=== PATIENT | female | born 1995 | race Caucasian/White ===

== ENCOUNTER 2017-09-23 10:13 | Emergency (ER) | payer OTHER ==
[~2017-09-23] VITALS: Ht 160 cm; Wt 68.5 kg
[2017-09-23 10:28] VITALS: Ht 160 cm; Wt 68.5 kg
[2017-09-23] MEDS ORDERED: KETOROLAC TROMETHAMINE 30 MG/ML VIAL IV STA (11:27)
[2017-09-23] MEDS ORDERED: DEXAMETHASONE **PF** INJ 10 MG/ML VIAL IV ONE (11:30)
[2017-09-23] MEDS ORDERED: SODIUM CHLORIDE 0.9% 1000ML 1,000 ML IV ONE (11:30)
[2017-09-23 11:51] VITALS: TEMP 36.9
[2017-09-23 12:20] LABS: BASO % 0.3 %; BASO ABS # 0.02 K/uL (0-0.2); EOS % 2.4 %; EOS ABS # 0.15 K/uL (0-0.5); HEMATOCRIT 40.8 % (37-47); HEMOGLOBIN 13.7 g/dL (12.0-16.0); IG# 0.02 K/uL (0.00-0.02); MEAN CELL VOLUME 89.1 fL (80-100); MEAN CORPUSCULAR HEMOGLOBIN 29.9 pg (25-34); MEAN CORPUSCULAR HGB CONC 33.6 g/dl (32-36); MEAN PLATELET VOLUME 10.8 fL (7.4-10.4); MONO % 7.4 %; MONO ABS # 0.47 K/uL (0.11-0.59); NEUT % 59.6 %; NEUT ABS # 3.77 K/uL (1.4-6.5); PLATELET COUNT 225 K/uL (130-400); RED CELL DISTRIBUTION WIDTH SD 42.1 fL (36.4-46.3); WHITE BLOOD COUNT 6.33 K/uL (4.8-10.8)
[2017-09-23 12:44] LABS: BLOOD UREA NITROGEN 12 mg/dl (7-18); CALCIUM 9.7 mg/dl (8.5-10.1); CARBON DIOXIDE 25 mmol/L (21-32); CREATININE 0.58 mg/dl (0.60-1.20); GLUCOSE 78 mg/dl (70-99); SODIUM 138 mmol/L (136-145)
[2017-09-23] MEDS ORDERED: PRED50TA PO (13:13)
[2017-09-23 13:44] VITALS: BP 108/61; PULSE 76; O2SAT 100
--- NOTE | 2017-09-23 16:03 | EMERGENCY ROOM VISIT NOTE ---
ED Visit Note First contact with patient: 10:31 Chief Complaint: I tonsils are swollen. History of Present Illness: Ms. Steen is a 22-year-old white female who ambulates into the ED complaining of throat pain. Patient reports she has been having some mild upper respiratory tract symptoms for last 2-3 days including sinus congestion, drainage and a nonproductive cough. She reports just today after waking she developed a sore throat. Since that time her sore throat has been constant. She describes a constant achy sensation in the pharynx. She rates her discomfort 5/10. Her pain is nonradiating. Her pain worsens with swallowing. She has not identified any alleviating factors related to the pain. She has not taken any medication for pain prior to arrival at the hospital. Associated with her pain she reports she has a headache on the top of her head and both parietal areas. She describes this as an achy sensation and reported her headache is mild, bilateral ear pain which she describes as a fullness sensation and bilateral ear ringing. Initially she reports she has dizziness and she explains or dizziness sensation as she moves her eyes she feels like her focus stays on one area and then slowly drifts over to where she is looking. She denies fevers, chills, sweats, skin eruptions, skin color changes, ear drainage, painful talking, drooling, inability to swallow, neck pain/stiffness, wheezing, hemoptysis, chest pain, palpitations, abdominal pain, nausea, vomiting , close sick contacts. Review of Systems: As noted above in history of present illness. All body systems were reviewed and found to be negative as noted above. Past Medical History: Patient denies. Current Medications: Patient denies. Allergies to Medications: Patient denies. Social History: Patient is currently employed; she feels safe in her home environment; he admits to tobacco use. Physical Examination: Vital Signs: Date Time Temp Pulse Resp B/P (MAP) Pulse Ox O2 Delivery O2 Flow Rate FiO2 09/23/17 13:44 76 16 108/61 100 09/23/17 11:51 36.9 69 16 114/65 99 Room Air 09/23/17 10:28 37.0 96 18 122/74 98 Room Air GENERAL: 22-year-old female in mild to moderate distress due to symptoms, nontoxic-appearing, afebrile and hemodynamically stable. NEUROLOGICAL: Awake, alert and oriented to person, place and time. Answering questions appropriately and following commands. Normal gait. Good hand eye coordination. No focal motor sensory deficits. SKIN: Warm, dry and pink. No soft tissue eruptions or trauma noted. HEENT: Atraumatic and normocephalic. No tenderness or erythema over the frontal or maxillary sinuses. External ears are nontender. Auditory canals are pink and patent. Tympanic membranes are not erythematous but are slightly bulging. Do not see any fluid behind the membrane. PERRLA. Sclera white and conjunctiva pink. No drainage from naris, but audible congestion. Oral cavity moist and pink. Airway is patent. Uvula is midline and no abscesses are seen. Pharynx is moderately erythematous and moderately edematous. Significant tonsillar hypertrophy but no kissing. I do not see any exudative material on the tonsils. Speech normal and clear. Positive anterior cervical chain lymphadenopathy; no posterior cervical chain lymphadenopathy. Trachea midline. No jugular venous distention. No laryngeal tenderness. BACK: No tenderness over the bony cervical and thoracic spine. No nuchal rigidity or meningismus. Full range of motion of the cervical spine. THORAX: Lungs sounds are clear to auscultation and equal bilaterally with symmetrical chest wall. No wheezing, rales or rhonchi. HEART: Regular rate and rhythm. No gallops, rubs or murmurs are appreciated. ABDOMEN: Flat, soft and nontender. Positive bowel sounds in all quadrants. No guarding, rigidity or organomegaly. EXTREMITIES: Moves all extremities well on command and with purpose. All distal neurovascular statuses are intact and equal bilaterally. ED Course: Patient is assessed as noted above. Patient's medication list was reviewed. Laboratory Testing: Test 09/23/17 11:50 Range/Units White Blood Count 6.33 4.8-10.8 K/uL Red Blood Count 4.58 4.2-5.4 M/uL Hemoglobin 13.7 12.0-16.0 g/dL Hematocrit 40.8 37-47 % Mean Corpuscular Volume 89.1 80-100 fL Mean Corpuscular Hemoglobin 29.9 25-34 pg Mean Corpuscular Hemoglobin Concent 33.6 32-36 g/dl Platelet Count 225 130-400 K/uL Mean Platelet Volume 10.8 7.4-10.4 fL Neutrophils (%) (Auto) 59.6 % Lymphocytes (%) (Auto) 30.0 % Monocytes (%) (Auto) 7.4 % Eosinophils (%) (Auto) 2.4 % Basophils (%) (Auto) 0.3 % Neutrophils # (Auto) 3.77 1.4-6.5 K/uL Lymphocytes # (Auto) 1.90 1.2-3.4 K/uL Monocytes # (Auto) 0.47 0.11-0.59 K/uL Eosinophils # (Auto) 0.15 0-0.5 K/uL Basophils # (Auto) 0.02 0-0.2 K/uL RDW Standard Deviation 42.1 36.4-46.3 fL RDW Coefficient of Variation 13.0 11.5-14.5 % Immature Granulocyte % (Auto) 0.3 % Immature Granulocyte # (Auto) 0.02 0.00-0.02 K/uL Sodium Level 138 136-145 mmol/L Potassium Level 4.0 3.5-5.1 mmol/L Chloride Level 104 98-107 mmol/L Carbon Dioxide Level 25 21-32 mmol/L Anion Gap 10.0 3-11 mmol/L Blood Urea Nitrogen 12 7-18 mg/dl Creatinine 0.58 0.60-1.20 mg/dl Est Creatinine Clear Calc Drug Dose 142.5 ml/min Estimated GFR () > 150.0 Estimated GFR (Non- 131.8 BUN/Creatinine Ratio 20.2 10-20 Random Glucose 78 70-99 mg/dl Calcium Level 9.7 8.5-10.1 mg/dl Monoscreen NEG NEG Group A Streptococcus Screen: Negative. Culture pending. Patient was hydrated with normal saline and received 30 mg of Toradol IV for pain and 8 mg of dexamethasone IV for inflammation. Patient was reassessed multiple times during her stay in the emergency department. Patient was educated about today's findings and instructed on her treatment plan ; she verbalizes understanding and agreement with this plan. Clinical Impression: Acute pharyngitis. Decision-Making: Initially my differential diagnosis I considered pharyngitis caused by a streptococcal infection, mononucleosis, viral infections, sinusitis , otitis media and other causes. Disposition: Patient discharged home in stable condition; prior to departure she was reassessed and subjectively reported she was feeling much better. She denied throat pain and reported resolution of headache. Plan: Patient was encouraged to alternate ibuprofen and acetaminophen every 3 hours as needed for pain and/or fevers. Patient was prescribed prednisone 50 mg once a day for 5 days. Patient was encouraged to stay well-hydrated with increased clear fluids and to use a mechanical soft/liquid diet until resolution of throat discomfort. Patient is encouraged to follow-up with her primary care provider for recheck in 2-4 days if no better. Patient was encouraged return ED for worsening symptoms, inability to swallow, painful talking, drooling, uncontrolled fevers or any new/concerning symptoms.
== END 2017-09-23 13:28 | disposition home or self-care (01) ==
LOC: C.EDB 10:15 → C.EDC 13:28
DX: J02.9 Acute pharyngitis, unspecified (principal)

== ENCOUNTER 2017-10-03 10:33 | Emergency (ER) | payer OTHER ==
[~2017-10-03] VITALS: Ht 160 cm; Wt 69.0 kg
[2017-10-03 10:47] VITALS: TEMP 37.1; Ht 160 cm; Wt 69.0 kg
[2017-10-03] MEDS ORDERED: ALUMINUM/MAGNESIUM SUSP 30 ML UDC PO STA (11:49)
[2017-10-03] MEDS ORDERED: LIDOCAINE HCL 2% VISC SOLN 20 ML UDC PO STA (11:49)
--- NOTE | 2017-10-03 12:05 | EMERGENCY ROOM VISIT NOTE ---
History Report prepared by Donnie: Panfilo Dominguez Under the Supervision of: Dr. Marimar Jurado M.D. First contact with patient: 11:31 Chief Complaint: SORETHROAT Stated Complaint: PAIN IN THROAT AND LUNGS History of Present Illness The patient is a 22 year old female who presents to the Emergency Room with complaints of a persistent sore throat for the past 10 days. She states that it feels like something is stuck in her throat. The patient additionally states that she has some sharp left lung pain worsened with breathing and some shortness of breath. The patient was seen in the ED 10 days ago, and she was put on a five day steroid, though this did not help, and two days afterwards she got a cough. She notes that when she coughs she brings up yellow and green mucous with occasional blood. The patient denies any leg swelling. She states that she stopped smoking two weeks ago, and she does not take medications. The patient additionally states that she is having some acid reflux, and she is having difficulty sleeping at night. Source of History: patient Onset: 10 days ago Position: throat Quality: other (something stuck in her throat) Timing: other (persistent) Associated Symptoms: + cough, + SOB Note: Associated symptoms: Left lung pain, difficultly sleeping at night Denies: leg swelling Review of Systems See HPI for pertinent positives & negatives. A total of 6 systems reviewed and were otherwise negative. Past Medical & Surgical Medical Problems: (1) No chronic diseases present Family History Patient reports no known family medical history. Social History Smoking Status: Current Every Day Smoker Alcohol Use: none Drug Use: none Marital Status: single Housing Status: lives with family Occupation Status: unemployed Current/Historical Medications Scheduled Omeprazole (Prilosec), 20 MG PO BID Allergies Coded Allergies: No Known Allergies (Unverified , 10/03/17) Physical Exam Vital Signs Date Time Temp Pulse Resp B/P (MAP) Pulse Ox O2 Delivery O2 Flow Rate FiO2 10/03/17 14:00 78 18 129/78 99 10/03/17 12:04 82 18 106/62 95 Room Air 10/03/17 10:47 37.1 93 18 134/74 98 Room Air 10/03/17 10:47 98 Room Air Physical Exam Vital signs reviewed. General: Well-appearing female, in no significant distress. HEENT: No scleral icterus, PERRLA, neck supple. Atraumatic. Posterior oropharynx is clear. Cardiovascular: Regular rate and rhythm, no extra sounds. Pulmonary: Clear to auscultation bilaterally, normal work of breathing. Abdomen: Soft, nontender, nondistended, positive bowel sounds. Neurologic: Patient awake alert and oriented x 3 Medical Decision & Procedures ER Provider Diagnostic Interpretation: Radiology results as stated below per my review and radiologist interpretation: CHEST 2 VIEWS ROUTINE HISTORY: cough COMPARISON: None. FINDINGS: The lungs are clear. Cardiac silhouette is normal in size. No pleural effusions. No pneumothorax. IMPRESSION: No acute process. Electronically signed by: Sandro Wilkinson M.D. 10/03/2017 12:38 PM Dictated Date/Time: 10/03/2017 12:36 PM Laboratory Results Test 10/03/17 10:55 Bedside Prothrombin Time INR 1.1 (0.9-1.1) Laboratory results per my review. Medications Administered Medications (Trade) Dose Ordered Sig/Estephania Route Start Time Stop Time Status Last Admin Dose Admin Lidocaine HCl (Viscous Lidocaine 2% Soln) 10 ml NOW STAT PO 10/03/17 11:49 10/03/17 11:51 DC 10/03/17 12:03 10 ML Al Hydroxide/Mg Hydroxide (Maalox Susp) 30 ml NOW STAT PO 10/03/17 11:49 10/03/17 11:51 DC 10/03/17 12:02 30 ML ED Course 1131: Past medical records reviewed. The patient was evaluated in room A2. A complete history and physical examination was performed. 1149: Maalox Susp 30ml INH PO, Viscous Lidocaine 2% Soln 10ml PO 1330: Upon reevaluation, the patient appeared to have improvement of some symptoms, though she states that the lidocaine did not totally help. I discussed findings with her. She verbalized agreement of the treatment plan. She was discharged home. Medical Decision Differential diagnosis: Etiologies such as viral syndrome, tonsillitis, streptococcal pharyngitis, mononucleosis, peritonsillar abscess, retropharyngeal abscess, otitis, pneumonia , influenza, as well as others were entertained. This patient was evaluated and appeared to be in no significant distress. The patient is somewhat anxious and tearful. She states her mother is having mastectomy. She is visiting the area from [place] to help care for her mom. Patient was given a GI cocktail with minimal improvement. She has had a sore throat for the better part of a week. Chest x-ray was obtained and is clear. The patient admits to waking up at night coughing. She states she has a gagging feeling sometimes. I do suspect the patient is suffering from a GERD causing her sore throat. She was advised she may have a foreign body however this is not as likely. She was placed on 20 mg of Prilosec twice a day for 1 month. She will follow-up with her PCP and consider further evaluation. She will return to the ER for worsening of symptoms or any medical concerns. Impression Primary Impression: Pharyngitis Scribe Attestation The scribe's documentation has been prepared under my direction and personally reviewed by me in its entirety. I confirm that the note above accurately reflects all work, treatment, procedures, and medical decision making performed by me. Departure Information Dispostion Home / Self-Care Prescriptions Omeprazole (PRILOSEC) 20 Mg Capcr 20 MG PO BID, #60 CAP Prov: Marimar Jurado M.D. 10/03/17 Referrals No Doctor, Assigned (PCP) Forms HOME CARE DOCUMENTATION FORM, IMPORTANT VISIT INFORMATION Patient Instructions My [facility] Additional Instructions Diagnosis: Pharyngitis Prilosec 20 mg twice daily for [address] Fink at the number below for follow-up in the office. You may need to have your throat looked at with a scope. Follow-up with a primary care physician as soon as possible. Return to the ER for worsening of symptoms or any medical concerns.
--- NOTE | 2017-10-03 12:40 | DIAGNOSTIC IMAGING REPORT ---
CHEST 2 VIEWS ROUTINE HISTORY: cough COMPARISON: None. FINDINGS: The lungs are clear. Cardiac silhouette is normal in size. No pleural effusions. No pneumothorax. IMPRESSION: No acute process. Electronically signed by: Sandro Wilkinson M.D. 10/03/2017 12:38 PM Dictated Date/Time: 10/03/2017 12:36 PM
[2017-10-03] MEDS ORDERED: PRLSR20 PO (13:31)
[2017-10-03 14:00] VITALS: BP 129/78; PULSE 78; O2SAT 99
== END 2017-10-03 14:07 | disposition home or self-care (01) ==
LOC: C.EDB 10:35 → C.EDA 14:07
DX: J02.9 Acute pharyngitis, unspecified (principal); F17.200 Nicotine dependence, unspecified, uncomplicated

== ENCOUNTER 2018-01-06 10:55 | Emergency (ER) | payer OTHER ==
[~2018-01-06] VITALS: Ht 160 cm; Wt 75.2 kg
[~2018-01-06 10:55] MED LIST: PRLSR20 PO
[2018-01-06 10:57] VITALS: TEMP 36.9; Ht 160 cm; Wt 75.2 kg
[2018-01-06] MEDS ORDERED: IBUPROFEN 800 MG TAB PO STA (11:26)
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
[2018-01-06] MEDS ORDERED: CYCL5TAB PO (12:35)
[2018-01-06 12:38] VITALS: BP 122/75; PULSE 88; O2SAT 99
== END 2018-01-06 12:39 | disposition home or self-care (01) ==
LOC: C.EDB 10:56 → C.EDD 12:39
DX: S40.011A Contusion of right shoulder, initial encounter (principal); V86.55XA Driver of 3- or 4- wheeled all-terrain vehicle (ATV) injured in nontraffic accident, initial encounter; Z87.828 Personal history of other (healed) physical injury and trauma

== ENCOUNTER 2018-01-25 13:45 | Emergency (ER) | payer OTHER ==
[~2018-01-25] VITALS: Ht 160 cm; Wt 76.2 kg
[2018-01-25 13:48] VITALS: TEMP 36.8; Ht 160 cm; Wt 76.2 kg
--- NOTE | 2018-01-25 14:14 | EMERGENCY ROOM VISIT NOTE ---
History Report prepared by Scribe: Kaylen Rodriguez Under the Supervision of: Dr. Narayan Coats D.O. First contact with patient: 13:51 Chief Complaint: CONGESTION Stated Complaint: PAIN IN LUNGS,LIGHTHEADED,COUGHING,SNEEZING,DIZZY History of Present Illness The patient is a 22 year old female who presents to the Emergency Room with complaints of worsening congestion for the past 2 weeks. She states her symptoms started as rhinorrhea that she originally thought was allergies. She then developed a sore throat and productive cough with progressively darkening mucous, from yellow a few days ago to brown this morning. She denies any recent sick contacts. She has experienced some diarrhea. The patient admits to a history of asthma and is a former smoker. Pt denies headache, change in vision, fevers, chest pain, nausea, vomiting, pain with urination, and melena. Her LMP was 2 weeks ago and normal. Her Mother notes the patient does have a history of pneumonia. She also reports the patient has experienced some difficulty breathing and the chills recently. Source of History: patient, parent (Mother) Onset: 2 weeks [employer] Position: chest Timing: worsening Associated Symptoms: + chills, + sorethroat, + cough, + SOB, + diarrhea, No fevers, No headache, No chest pain, No nausea, No vomiting, No melena, No urinary symptoms Review of Systems See HPI for pertinent positives & negatives. A total of 10 systems reviewed and were otherwise negative. Past Medical & Surgical Medical Problems: (1) Asthma (2) History of pneumonia (3) No chronic diseases present Family History Patient reports no known family medical history. Social History Smoking Status: Former Smoker Alcohol Use: none Drug Use: none Marital Status: single Housing Status: lives with family Occupation Status: unemployed Current/Historical Medications Scheduled Azithromycin (Azithromycin), 250 MG PO DAILY Omeprazole (Prilosec), 20 MG PO BID Allergies Coded Allergies: No Known Allergies (Unverified , 01/25/18) Physical Exam Vital Signs Date Time Temp Pulse Resp B/P (MAP) Pulse Ox O2 Delivery O2 Flow Rate FiO2 01/25/18 15:42 77 16 126/66 99 01/25/18 14:11 72 16 132/63 97 Room Air 01/25/18 13:48 36.8 76 18 114/81 98 Room Air Physical Exam GENERAL: Sitting up in bed, alert, well appearing, well nourished, talking in full sentences, no distress, non-toxic EYE EXAM: normal conjunctiva. EARS: TM's clear bilaterally. OROPHARYNX: no exudate, no erythema, lips, buccal mucosa, and tongue normal and mucous membranes are moist NECK: supple, no nuchal rigidity, no adenopathy, non-tender LUNGS: Clear to auscultation. Normal chest wall mechanics HEART: no murmurs, S1 normal and S2 normal ABDOMEN: abdomen soft, non-tender, normo-active bowel sounds, no masses, no rebound or guarding. BACK: Back is symmetrical on inspection and there is no deformity, no midline tenderness, no CVA tenderness. SKIN: no rashes and no bruising UPPER EXTREMITIES: upper extremities are grossly normal. LOWER EXTREMITIES: No pitting edema. Calves are equal bilaterally. NEURO EXAM: Normal sensorium, cranial nerves II-XII grossly intact, normal speech, no gross weakness of arms, no gross weakness of legs. Gross sensation intact. Medical Decision & Procedures ER Provider Diagnostic Interpretation: Radiology results as stated below per my review and the radiologist's interpretation: CHEST 2 VIEWS ROUTINE CLINICAL HISTORY: cough COMPARISON STUDY: 10/03/2017 FINDINGS: The cardiac and mediastinal contours are normal. There is no evidence of focal pulmonary consolidation. There is no evidence of failure. No pleural effusions are visualized. IMPRESSION: No active disease in the chest. Electronically signed by: Sean Bravo M.D. 01/25/2018 2:55 PM Laboratory Results Test 01/25/18 14:10 Influenza Type A Antigen Neg for Influ A (NEG) Influenza Type B Antigen Neg for Influ B (NEG) Laboratory results per my review. Medications Administered Medications (Trade) Dose Ordered Sig/Estephania Route Start Time Stop Time Status Last Admin Dose Admin Azithromycin (Zithromax Tab) 500 mg NOW STAT PO 01/25/18 15:11 01/25/18 15:12 DC 01/25/18 15:45 500 MG ED Course ED COURSE: Vital signs were reviewed and showed normal vital signs. The patients medical record was reviewed The above diagnostic studies were performed and reviewed. ED treatments and interventions as stated above. 1356: The patient was evaluated in room C12B. A complete history and physical examination was performed. 1511: Azithromycin 500 mg PO. 1520: Upon reevaluation, the patient is feeling well and ready to go home. I discussed my findings with the patient and she understands and agrees with the treatment plan. Based on the patients age, coexisting illnesses, exam and lab findings the decision to treat as an outpatient was made. The patient remained stable while under my care. The patient appeared well at the time of discharge. Medical Decision Differential diagnoses includes but is not limited to pneumonia, bronchitis, COPD/Asthma exacerbation, pneumothorax, pulmonary embolism, congestive heart failure, acute coronary syndrome. Patient is a 22-year-old female who presents the ER for cough, runny nose, sore throat and ear congestion. This all started 2 weeks ago and the cough is been present for the past week. She does have some mild shortness of breath. No recorded fevers. History of asthma but does not use any inhalers at this time. On exam lungs are clear. Talking in full sentences. Vitals are stable. She is in no distress. X-rays were obtained along with influenza and strep; all of which were negative. Patient was updated at bedside and discharged with azithromycin after an oral dose in the ER. She was discharged follow-up with PCP as an outpatient for bronchitis. Discussed with Pt concerning signs and symptoms to watch out for. Pt was instructed to follow up with their PCP and discussed with the patient their option to return to the ED at anytime for persistent or worsening symptoms. The appropriate anticipatory guidance and out- patient management, including indications for return to the emergency department , were explained at length to the patient and understood. Medication Reconcilliation Current Medication List: was personally reviewed by me Blood Pressure Screening Patient's blood pressure: Normal blood pressure Blood pressure disposition: Did not require urgent referral Impression Primary Impression: Bronchitis Scribe Attestation The scribe's documentation has been prepared under my direction and personally reviewed by me in its entirety. I confirm that the note above accurately reflects all work, treatment, procedures, and medical decision making performed by me. Departure Information Dispostion Home / Self-Care Prescriptions Azithromycin (Azithromycin) 250 Mg Tab 250 MG PO DAILY, #4 Prov: Narayan Coats, DO 01/25/18 Referrals No Doctor, Assigned (PCP) Patient Instructions Bronchitis Acute, My [facility] Additional Instructions Please follow up with your primary care doctor with in the next 24 hours. Any worsening of your symptoms, please return to the ED immediately. This includes any fevers greater than 100.4, worsening pain, chest pain, shortness breath, persistent nausea, vomiting, unable to eat or drink, or any other concerning signs or symptoms from your standpoint. Please take antibiotics as prescribed.
[2018-01-25 14:51] LABS: INFLUENZA B ANTIGEN Neg for Influ B (NEG)
--- NOTE | 2018-01-25 14:56 | DIAGNOSTIC IMAGING REPORT ---
CHEST 2 VIEWS ROUTINE CLINICAL HISTORY: cough COMPARISON STUDY: 10/03/2017 FINDINGS: The cardiac and mediastinal contours are normal. There is no evidence of focal pulmonary consolidation. There is no evidence of failure. No pleural effusions are visualized.[ IMPRESSION: No active disease in the chest. Electronically signed by: Sean Bravo M.D. 01/25/2018 2:55 PM Dictated Date/Time: 01/25/2018 2:54 PM
[2018-01-25] MEDS ORDERED: AZITHROMYCIN 250 MG TAB PO STA (15:11)
[2018-01-25] MEDS ORDERED: AZIT-57 PO (15:13)
[2018-01-25 15:42] VITALS: BP 126/66; PULSE 77; O2SAT 99
== END 2018-01-25 15:44 | disposition home or self-care (01) ==
LOC: C.EDB 13:46 → C.EDC 15:44
DX: J40 Bronchitis, not specified as acute or chronic (principal); R42 Dizziness and giddiness; Z87.891 Personal history of nicotine dependence; Z87.01 Personal history of pneumonia (recurrent)